=== PATIENT | male | born 1975 | race Caucasian/White ===

== ENCOUNTER 2023-12-12 13:54 | Emergency (ER) | payer MEDICAID ==
[~2023-12-12] VITALS: Ht 167.6 cm; Wt 93.4 kg
[2023-12-12] MEDS ORDERED: LIDOcaine 40mg/ml topical solution MM ONE (14:55)
[2023-12-12 15:46] LABS: BASOPHILS # (AUTO) 0.1 X10'3 (0-0.2); BASOPHILS % (AUTO) 0.6 % (0-1); EOSINOPHILS # (AUTO) 0.1 X10'3 (0-0.9); EOSINOPHILS % (AUTO) 0.9 % (0-6); HEMATOCRIT 44.1 % (42.0-52.0); HEMOGLOBIN 15.5 g/dl (14.0-17.9); LYMPHOCYTES # (AUTO) 2.3 X10'3 (1.1-4.8); LYMPHOCYTES % (AUTO) 22.1 % (21-51); MEAN CORPUSCULAR HEMOGLOBIN 31.3 PG (27.0-31.0); MEAN CORPUSCULAR HGB CONC 35.1 g/dL (33.0-36.5); MEAN CORPUSCULAR VOLUME 89.3 FL (78-98); MONOCYTES # (AUTO) 1.1 X10'3 (0-0.9); MONOCYTES % (AUTO) 10.7 % (2-12); NEUTROPHILS # (AUTO) 6.9 X10'3 (1.8-7.7); NEUTROPHILS % (AUTO) 65.7 % (42-75); PLATELET COUNT 230 X10'3 (140-440); RED BLOOD COUNT 4.94 X10'6 (4.70-6.10); RED CELL DISTRIBUTION WIDTH 13.3 % (11.5-14.5); WHITE BLOOD COUNT 10.4 X10'3 (4.5-11.0)
[2023-12-12] MEDS: LORazepam 2 mg/ml vial IV ONE (16:13)
[2023-12-12] MEDS: LIDOcaine 4% (40 mg/ml) topical solution 50ml MM ONE (16:14)
[2023-12-12] MEDS: LIDOcaine/epinephrine/tetracaine TOPICAL sol 3 ML syringe TOP ONE ×2 (16:14→16:15)
[2023-12-12 16:18] LABS: ALANINE AMINOTRANSFERASE 26 U/L (12-78); ALBUMIN 3.8 G/DL (3.4-5.0); ALKALINE PHOSPHATASE 101 IU/L (46-116); ANION GAP 7 (8-16); ASPARTATE AMINO TRANSFERASE 18 U/L (10-37); BILIRUBIN,TOTAL 0.9 MG/DL (0.1-1.0); BLOOD UREA NITROGEN 13 MG/DL (7-18); BUN/CREATININE RATIO 14.3 (10.0-20.0); CALCIUM 9.3 MG/DL (8.5-10.1); CHLORIDE 103 MMOL/L (99-107); CREATININE 0.91 MG/DL (0.60-1.10); GLUCOSE 103 MG/DL (70-104); POTASSIUM 4.1 MMOL/L (3.5-5.1); SODIUM 140 MMOL/L (135-145); TOTAL CARBON DIOXIDE 30.2 MMOL/L (24-32); TOTAL PROTEIN 7.8 G/DL (6.4-8.2); eCRCL 92 ML/MIN; eGFR 90 ML/MIN
[2023-12-12] MEDS: normal saline 1000ML IV soln IVB ONE (16:18)
[2023-12-12] MEDS: fentaNYL/PF 50MCG/1 ML 2ML syringe IV ONE (16:18)
[2023-12-12] MEDS ORDERED: PODO3.5G TOP (16:38)
[2023-12-12] MEDS ORDERED: CEPH-585 PO (16:38)
[2023-12-12 17:29] VITALS: BP 146/100; PULSE 91; RESP 16; TEMP 98; O2SAT 96
== END 2023-12-12 17:48 | disposition home or self-care (01) ==
LOC: ER 13:54
DX: A63.0 Anogenital (venereal) warts (principal); R10.2 Pelvic and perineal pain
CPT/HCPCS: 36415; 80053; 85025; 96361; 96374; 96375; 99285; J2060; J3010; J7030